=== PATIENT | female | born 1955 | race Caucasian/White ===

== ENCOUNTER 2021-11-13 15:48 | Emergency (ER) | payer MEDICARE ==
[~2021-11-13] VITALS: Ht 157.5 cm; Wt 44.0 kg
[2021-11-13 16:04] VITALS: BP 108/70
[2021-11-13 16:21] LABS: HEMATOCRIT 35.3 % (37.0-47.0); IMMATURE GRANULOCYTES 0.3 % (0.0-5.0); MEAN CELL VOLUME 89.1 fL CALC (80.0-100.0); MEAN CORPUSCULAR HGB 27.8 pG CALC (26.0-32.0); MEAN CORPUSCULAR HGB CONC 31.2 g/dL CAL (32.0-36.0); NEUT# 9.31 thou/uL (2.00-7.15); RED BLOOD COUNT 3.96 mill/uL (4.20-5.60); RED CELL DISTRI WIDTH 14.8 % (11.5-15.5)
[2021-11-13 16:30] VITALS: BP 117/70
[2021-11-13 17:10] LABS: ALBUMIN 3.3 g/dL (3.2-5.0); ALKALINE PHOSPHATASE 98 u/l (38-126); ANION GAP 11 (6-22 (CALC)); BILIRUBIN, TOTAL 0.4 mg/dL (0.0-1.4); BUN 17 mg/dL (8-23); BUN/CREATININE RATIO 19 (12-20 (CALC)); CARBON DIOXIDE 29 mmol/l (22-30); CHLORIDE 97 mmol/l (95-108); CREATININE 0.9 mg/dL (0.5-1.0); GFR FOR AFR.AMER. > 60 ML/MIN (>=60 (CALC)); GFR OTHER RACES > 60 ML/MIN (>=60 (CALC)); SGOT/AST 38 u/l (9-36); SODIUM 134 mmol/l (137-146); TOTAL PROTEIN 6.4 g/dL (6.3-8.2)
[2021-11-13] MEDS ORDERED: POTASSIUM CHLO20 ME1 PO (17:33)
[2021-11-13 18:22] VITALS: BP 117/70
== END 2021-11-13 18:22 | disposition home or self-care (01) ==
LOC: ED 15:48
PROVIDERS: Family Medicine
DX: R19.7 Diarrhea, unspecified (principal); E87.6 Hypokalemia; E78.00 Pure hypercholesterolemia, unspecified; F32.A Depression, unspecified; Z95.3 Presence of xenogenic heart valve; Z95.0 Presence of cardiac pacemaker

== ENCOUNTER 2022-03-18 21:24 | Emergency (ER) | payer MEDICARE ==
[~2022-03-18] VITALS: Ht 157.5 cm; Wt 40.8 kg
[~2022-03-18 21:24] MED LIST: POTASSIUM CHLO20 ME1 PO
[2022-03-18 23:06] LABS: BASO% 0.1 % (0-3); IMMATURE GRANULOCYTES 1.1 % (0.0-5.0); LYMPH% 4.2 % (15-41); MEAN CELL VOLUME 93.1 fL CALC (80.0-100.0); MEAN CORPUSCULAR HGB 29.9 pG CALC (26.0-32.0); MEAN CORPUSCULAR HGB CONC 32.1 g/dL CAL (32.0-36.0); MONO% 2.1 % (2-13); NEUT# 10.47 thou/uL (2.00-7.15); RED BLOOD COUNT 2.61 mill/uL (4.20-5.60); RED CELL DISTRI WIDTH 17.1 % (11.5-15.5)
[2022-03-18 23:20] LABS: BILIRUBIN, TOTAL 0.4 mg/dL (0.02-1.3); CREATININE 1.3 mg/dL (0.5-1.0); MAGNESIUM 2.3 mg/dL (1.6-2.3)
[2022-03-18 23:27] LABS: ALBUMIN 1.2 g/dL (3.2-5.0); POTASSIUM 4.5 mmol/l (3.5-5.1); TOTAL PROTEIN 2.8 g/dL (6.3-8.2)
[2022-03-18 23:30] LABS: INTERNATIONAL NORMALIZED RATIO 2.3 RATIO (0.7-1.3); PROTHROMBIN TIME 21.7 SECONDS (9.0-12.5)
[2022-03-18 23:38] LABS: HEMATOCRIT 24.3 % (37.0-47.0); HEMOGLOBIN 7.8 g/dl (12.0-16.0); NEUT% 92.5 % (42-76)
[2022-03-18 23:41] LABS: D-DIMER > 35.00 mg/L (0.19-0.60)
[2022-03-19] VITALS (13 sets, daily range): BP systolic 86–111; BP diastolic 47–66
[2022-03-19] MEDS ORDERED: BUPROPN HCL150 MG PO (00:15)
[2022-03-19] MEDS ORDERED: DIGOXIN125 MCG (00:15)
[2022-03-19] MEDS ORDERED: POTASSIUM CHLO20 ME2 PO (00:15)
[2022-03-19] MEDS ORDERED: [UNRECOGNIZED DRUG - OTHER] (00:15)
== END 2022-03-19 01:00 | disposition short-term general hospital (02) ==
LOC: ED 21:24
PROVIDERS: Family Medicine
PROC: 5A12012 Performance of Cardiac Output, Single, Manual (ICD-10-PCS; principal; 2022-03-18)
PROC: 0BH17EZ Insertion of Endotracheal Airway into Trachea, Via Natural or Artificial Opening (ICD-10-PCS; 2022-03-18)
PROC: 5A1935Z Respiratory Ventilation, Less than 24 Consecutive Hours (ICD-10-PCS; 2022-03-18)
PROC: 06HY33Z Insertion of Infusion Device into Lower Vein, Percutaneous Approach (ICD-10-PCS; 2022-03-18)
DX: I46.9 Cardiac arrest, cause unspecified (principal); E78.00 Pure hypercholesterolemia, unspecified; Z95.3 Presence of xenogenic heart valve; Z95.0 Presence of cardiac pacemaker